=== PATIENT | female | born 1960 | race Caucasian/White ===

== ENCOUNTER 2023-03-02 12:30 | Outpatient (CLI) | payer MEDICAID | END 2023-03-02 12:31 | disposition critical access hospital (66) | LOC: EMS 12:30 | DX: T63.441A Toxic effect of venom of bees, accidental (unintentional), initial encounter (principal) | CPT/HCPCS: A0425; A0429 ==

== ENCOUNTER 2023-03-02 12:53 | Emergency (ER) | payer MEDICAID, OTHER ==
[2023-03-02] MEDS ORDERED: cephALEXin 250 MG CAPSULE PO STA (13:03)
[2023-03-02] MEDS ORDERED: CHERRY SYRUP 10 ML UDC PO ONE (13:03)
[2023-03-02] MEDS ORDERED: DEXAMETHASONE 10 MG/ML VIAL PO STA (13:03)
[2023-03-02] MEDS ORDERED: SULFAMETH/TRIMETH DS 800/160 MG TABLET PO STA (13:03)
[2023-03-02] MEDS ORDERED: DOXEPIN 10 MG CAPSULE PO STA (13:03)
[2023-03-02] MEDS ORDERED: HYDROcod/ACETAM 5/325 MG TABLET PO STA (13:04)
--- NOTE | 2023-03-02 13:06 | ED Physician Documentation ---
History of Present Illness - Stated complaint Stated Complaint: LLE INFLAMED STUNG BY BEES - Chief complaint Chief Complaint: General - History obtained from History obtained from: Patient - Additonal information Additional information: 62-year-old woman who is homeless. She is living out [place]. Cannot go to the group home because she has a dog. 3 days ago she was stung multiple times by bees or wasps. 1 in the abdominal wall but mostly in the left lower extremity. Her left lower extremity is swollen and painful and because of that she cannot walk or bear weight. No fevers. She is otherwise healthy. PD PAST MEDICAL HISTORY - Present Medications Home Medications: Ambulatory Orders Medication Instructions Recorded Confirmed Doxepin [SINEquan] 10 mg PO TID PRN #14 cap 03/02/23 HYDROcod/ACETAM 5/325 [[place] 5/325] 1 - 2 tab PO Q6H PRN #15 tablet 03/02/23 Sulfamethox/Trimeth 800/160 1 each PO BID #14 tablet 03/02/23 [Bactrim Ds 800/160] cephALEXin [Keflex] 500 mg PO Q6H #28 cap 03/02/23 predniSONE [Deltasone] 20 mg PO [id number] #21 tab 03/02/23 - Allergies Allergies/Adverse Reactions: Allergies Allergy/AdvReac Type Severity Reaction Status Date / Time amoxicillin Allergy Unknown Verified 03/02/23 13:24 ampicillin Allergy Unknown Verified 03/02/23 13:24 Penicillins Allergy Unknown Verified 03/02/23 13:24 PD ED PE NORMAL - Vitals Vital signs reviewed: Yes - General General: Alert and oriented X 3, No acute distress - HEENT HEENT: Pharynx benign - Cardiac Cardiac: RRR, No murmur - Respiratory Respiratory: No respiratory distress, Clear bilaterally - Derm Derm: Normal color, Warm and dry - Extremities Extremities: Other (There is one picked at bee sting on the lower abdominal wall with signs of mild superinfection. The left lower extremity is swollen warm itchy with hives and a few very small bullae. There are some thick areas above the knee that also look superinfected but nothing to culture.) - Neuro Neuro: Alert and oriented X 3, Normal speech Results - Vitals Vitals: Vital Signs - 24 hr 03/02/23 13:01 Temperature 36.7 C Heart Rate 100 Respiratory 19 Rate Blood Pressure 106/85 H O2 Saturation 99 Oxygen O2 Source Room air PD Medical Decision Making - ED course ED course: 62-year-old homeless woman has superinfected bee stings and cannot walk or bear weight related to same. She is administered Bactrim, Keflex, hydrocodone, doxepin, and steroids. Social work consult placed given the above. Seen by social work given her homelessness and inability to bear weight. Patient did feel able to walk with crutches and social work arranged for her to have a few nights in a hotel for respite. Departure - Departure Disposition: 01 Home, Self Care Clinical Impression: Left leg cellulitis Bee sting Qualifiers: Encounter type: initial encounter Injury intent: accidental or unintentional Qualified Code(s): T63.441A - Toxic effect of venom of bees, accidental (unintentional), initial encounter Condition: Good Record reviewed to determine appropriate education?: Yes Instructions: ED Infec Skin Cellulitis Prescriptions: Sulfamethox/Trimeth 800/160 [Bactrim Ds 800/160] 1 each PO BID #14 tablet predniSONE [Deltasone] 20 mg PO [id number] #21 tab cephALEXin [Keflex] 500 mg PO Q6H #28 cap HYDROcod/ACETAM 5/325 [[place] 5/325] 1 - 2 tab PO Q6H PRN #15 tablet PRN Reason: Pain Doxepin [SINEquan] 10 mg PO TID PRN #14 cap PRN Reason: Itching Comments: I sent your prescriptions electronically to [facility] in [place]. heating and ventilating worker arranged for a few nights for you at the [facility] which is right next to [facility]. Call your doctor to arrange a follow-up appointment, make the next available appointment. In the interim, return anytime if worse or if new symptoms develop. I am prescribing a short course of narcotic pain medication for you. These are potentially dangerous and addictive medications that should be used carefully. These medications may constipate you. Take an [id number] stool softener (docusate) twice daily with plenty of water while taking these medications. If you go 24 hours without a bowel movement, take [id number] miralax, per package instructions. Do not drink or drive while taking these medications. If you received narcotic or sedating medications while in the emergency department, do not drive for 24 hours. Store this medication in a safe, secure place and out of reach of children. It is a violation of federal law to give or sell this medication to another person or to use in a manner other than prescribed. The ED will not refill narcotic prescriptions, including prescriptions lost or stolen. To dispose of unwanted medications: 1. [facility] provides a [facility] box for medication in pill form only (no liquids) 8:00 am to 4:30 p.m. Thursday-Thursday in the lobby of the [facility], [address] [place] [address]. Empty pills into ziplock bag before disposal. Call [phone] for information. 2.[employer] is a free service available to all [facility] residents. Go to [email or web address] Note that many narcotic pain relievers also contain Tylenol/acetaminophen. P lease ensure that your total dose of acetaminophen from all sources does not exceed 3 g (3000 mg) per day.
[2023-03-02 15:12] VITALS: BP 110/88; O2SAT 100
== END 2023-03-02 15:06 | disposition home or self-care (01) ==
LOC: ED 12:53 → MERGE 12:53 → ED 15:06
DX: L03.116 Cellulitis of left lower limb (principal); T63.441A Toxic effect of venom of bees, accidental (unintentional), initial encounter; Z59.00 Homelessness unspecified
CPT/HCPCS: 99283; A9270

== ENCOUNTER 2023-03-18 09:36 | Outpatient (CLI) | payer MEDICAID | END 2023-03-18 09:37 | disposition left against medical advice (07) | LOC: EMS 09:36 | DX: M79.89 Other specified soft tissue disorders (principal) ==

== ENCOUNTER 2023-05-12 19:18 | Outpatient (CLI) | payer MEDICAID | END 2023-05-12 19:19 | disposition short-term general hospital (02) | LOC: EMS 19:18 | DX: R40.4 Transient alteration of awareness (principal); R09.89 Other specified symptoms and signs involving the circulatory and respiratory systems; T50.901A Poisoning by unspecified drugs, medicaments and biological substances, accidental (unintentional), initial encounter; Y92.022 Bathroom in mobile home as the place of occurrence of the external cause | CPT/HCPCS: A0425; A0427; A0999 ==

== ENCOUNTER 2023-06-29 23:03 | Outpatient (CLI) | payer SELFPAY | END 2023-06-29 23:59 | disposition critical access hospital (66) | LOC: EMS 23:03 | DX: T40.411A Poisoning by fentanyl or fentanyl analogs, accidental (unintentional), initial encounter (principal) | CPT/HCPCS: A0425; A0427 ==

== ENCOUNTER 2023-06-29 23:25 | Emergency (ER) | payer SELFPAY ==
--- NOTE | 2023-06-29 23:52 | ED Physician Documentation ---
History of Present Illness - Stated complaint Stated Complaint: OD - Chief complaint Chief Complaint: MHE - History obtained from History obtained from: EMS - Additonal information Additional information: 62-year-old woman with history of fentanyl abuse presents status post overdose tonight. Patient was found with fentanyl pills by EMS after family member called 911. On arrival she was breathing at 4 breaths/min and 67% on room air. She received 4 mg intranasal Narcan without improvement and then 1 mg IV Narcan with improvement in mental status and is now alert and oriented x 3. Also received 4 mg IV Zofran en route. She did have some desaturations en route and was 84% on 6 L nasal cannula at 1 point. Further history limited by patient intoxication. Review of Systems Unable to obtain: Intoxicated PD PAST MEDICAL HISTORY - Present Medications Home Medications: Ambulatory Orders Medication Instructions Recorded Confirmed Doxepin [SINEquan] 10 mg PO TID PRN #14 cap 03/02/23 HYDROcod/ACETAM 5/325 [[place] 5/325] 1 - 2 tab PO Q6H PRN #15 tablet 03/02/23 Sulfamethox/Trimeth 800/160 1 each PO BID #14 tablet 03/02/23 [Bactrim Ds 800/160] cephALEXin [Keflex] 500 mg PO Q6H #28 cap 03/02/23 predniSONE [Deltasone] 20 mg PO [id number] #21 tab 03/02/23 - Allergies Allergies/Adverse Reactions: Allergies Allergy/AdvReac Type Severity Reaction Status Date / Time amoxicillin Allergy Unknown Verified 06/29/23 23:51 ampicillin Allergy Unknown Verified 06/29/23 23:51 Penicillins Allergy Unknown Verified 06/29/23 23:51 PD ED PE NORMAL - Vitals Vital signs reviewed: Yes - General General: Alert and oriented X 3, No acute distress, Other (disheveled appearing) - HEENT HEENT: Atraumatic, PERRL, EOMI, Moist mucous membranes, Pharynx benign - Neck Neck: Supple, no meningeal sign - Cardiac Cardiac: RRR - Respiratory Respiratory: No respiratory distress, Clear bilaterally - Abdomen Abdomen: Non tender, Non distended - Derm Derm: Normal color, Warm and dry - Neuro Neuro: Alert and oriented X 3 Results - Vitals Vitals: Vital Signs - 24 hr 06/29/23 06/30/23 06/30/23 23:30 00:00 00:30 Temperature 36.4 C L Heart Rate 105 H 101 H 104 H Respiratory 16 17 11 L Rate Blood Pressure 133/92 H 133/92 H 121/92 H O2 Saturation 94 89 L If not protocol : Oxygen Flow, liters/minute 06/30/23 06/30/23 06/30/23 00:46 01:30 02:00 Temperature 36.4 C L 36.8 C Heart Rate 101 H 100 108 H Respiratory 17 16 18 Rate Blood Pressure 121/92 H 126/81 H 116/78 O2 Saturation 95 93 93 If not protocol 4 4 4 : Oxygen Flow, liters/minute 06/30/23 06/30/23 06/30/23 02:30 03:00 05:01 Temperature Heart Rate 96 106 H 106 H Respiratory 11 L 13 14 Rate Blood Pressure 120/82 H 122/85 H 108/65 O2 Saturation 96 95 92 If not protocol 3 4 : Oxygen Flow, liters/minute 06/30/23 06/30/23 05:30 06:32 Temperature 36.8 C 36.3 C L Heart Rate 115 H 105 H Respiratory 19 12 Rate Blood Pressure 128/92 H 106/80 O2 Saturation 94 94 If not protocol 4 4 : Oxygen Flow, liters/minute Oxygen O2 Source Nasal cannula Oxygen Flow Rate 3 - EKG (time done) 2338 EKG releavant findings:: EKG personally interpreted by author of this note. Relevant findings are: Rate: Rate (enter#) (100) Rhythm: Sinus tachycardia [place]: Normal Intervals: Normal UT QRS: Normal Ischemia: Normal ST segments - Labs Labs: Laboratory Tests 06/29/23 06/29/23 06/29/23 00:30 00:40 00:40 WBC 3.1 L RBC 4.40 Hgb 14.8 Hct 45.3 MCV 103.0 H MCH 33.6 H MCHC 32.7 RDW 12.4 Plt Count 148 MPV 10.2 Neut # (Auto) 2.1 Lymph # (Auto) 0.8 L Jay # (Auto) 0.2 Eos # (Auto) 0.0 Baso # (Auto) 0.0 Absolute Nucleated RBC 0.00 Nucleated RBC % 0.0 Sodium 142 Potassium 3.9 Chloride 105 Carbon Dioxide 31 Anion Gap 6.0 BUN 12 Creatinine 0.8 Estimated GFR (MDRD) 72 L Glucose 100 Calcium 9.4 Magnesium 1.6 L Total Bilirubin 0.5 AST 71 H ALT 48 Alkaline Phosphatase 68 Total Creatine Kinase 109 B-Natriuretic Peptide Total Protein 6.0 L Albumin 3.5 Globulin 2.5 Albumin/Globulin Ratio 1.4 Lipase 28 TSH 6.18 H Urine Color Urine Clarity Urine pH Ur Specific [place] Urine Protein Urine Glucose (UA) Urine Ketones Urine Occult Blood Urine Nitrite Urine Bilirubin Urine Urobilinogen Ur Leukocyte Esterase Ur Microscopic Review Urine Culture Comments Nasal Adenovirus (PCR) NOT DETECTED Nasal B. parapertussis DNA (PCR) NOT DETECTED Nasal Coronavir 229E PCR NOT DETECTED Nasal Coronavir HKU1 PCR NOT DETECTED Nasal Coronavir NL63 PCR NOT DETECTED Nasal Coronavir OC43 PCR NOT DETECTED Nasal Enterovir/Rhinovir PCR NOT DETECTED Nasal Influenza B PCR NOT DETECTED Nasal Influenza A PCR NOT DETECTED Nasal Parainfluen 1 PCR NOT DETECTED Nasal Parainfluen 2 PCR NOT DETECTED Nasal Parainfluen 3 PCR NOT DETECTED Nasal Parainfluen 4 PCR NOT DETECTED Nasal RSV (PCR) NOT DETECTED Nasal B.pertussis DNA PCR NOT DETECTED Nasal C.pneumoniae (PCR) NOT DETECTED Scott Human Metapneumo PCR NOT DETECTED Nasal M.pneumoniae (PCR) NOT DETECTED Nasal SARS-CoV-2 (PCR) NOT DETECTED Salicylates < 1.5 Urine Opiates Screen Ur Buprenorphine Scrn Ur Oxycodone Screen Urine Methadone Screen Acetaminophen 1.1 Ur Barbiturates Screen Ur Tricyclics Screen Ur Phencyclidine Scrn Ur Amphetamine Screen U Methamphetamines Scrn U Benzodiazepines Scrn Urine Cocaine Screen U Cannabinoids Screen Ur Drug Screen Comment Ethyl Alcohol < 10.0 06/30/23 06/30/23 00:30 00:40 WBC RBC Hgb Hct MCV MCH MCHC RDW Plt Count MPV Neut # (Auto) Lymph # (Auto) Jay # (Auto) Eos # (Auto) Baso # (Auto) Absolute Nucleated RBC Nucleated RBC % Sodium Potassium Chloride Carbon Dioxide Anion Gap BUN Creatinine Estimated GFR (MDRD) Glucose Calcium Magnesium Total Bilirubin AST ALT Alkaline Phosphatase Total Creatine Kinase B-Natriuretic Peptide 117 H Total Protein Albumin Globulin Albumin/Globulin Ratio Lipase TSH Urine Color YELLOW Urine Clarity CLEAR Urine pH 6.0 Ur Specific [place] 1.020 Urine Protein TRACE Urine Glucose (UA) NEGATIVE Urine Ketones NEGATIVE Urine Occult Blood NEGATIVE Urine Nitrite NEGATIVE Urine Bilirubin NEGATIVE Urine Urobilinogen 2 H Ur Leukocyte Esterase NEGATIVE Ur Microscopic Review NOT INDICATED Urine Culture Comments NOT INDICATED Nasal Adenovirus (PCR) Nasal B. parapertussis DNA (PCR) Nasal Coronavir 229E PCR Nasal Coronavir HKU1 PCR Nasal Coronavir NL63 PCR Nasal Coronavir OC43 PCR Nasal Enterovir/Rhinovir PCR Nasal Influenza B PCR Nasal Influenza A PCR Nasal Parainfluen 1 PCR Nasal Parainfluen 2 PCR Nasal Parainfluen 3 PCR Nasal Parainfluen 4 PCR Nasal RSV (PCR) Nasal B.pertussis DNA PCR Nasal C.pneumoniae (PCR) Scott Human Metapneumo PCR Nasal M.pneumoniae (PCR) Nasal SARS-CoV-2 (PCR) Salicylates Urine Opiates Screen NEGATIVE Ur Buprenorphine Scrn NEGATIVE Ur Oxycodone Screen NEGATIVE Urine Methadone Screen NEGATIVE Acetaminophen Ur Barbiturates Screen NEGATIVE Ur Tricyclics Screen NEGATIVE Ur Phencyclidine Scrn NEGATIVE Ur Amphetamine Screen POSITIVE H U Methamphetamines Scrn POSITIVE H U Benzodiazepines Scrn NEGATIVE Urine Cocaine Screen NEGATIVE U Cannabinoids Screen NEGATIVE Ur Drug Screen Comment CUTOFF CONC BELOW: Ethyl Alcohol PD Medical Decision Making - ED course ED course: 62-year-old woman presents with fentanyl overdose, treated with intranasal and IV Narcan. Plan to monitor in the emergency department and obtain lab work including CBC, abdominal panel and tox labs. Will reevaluate. Patient went to sleep in her stretcher and breathing went down to 5BPM on monitor with O2 sat 75% RA. 1mg additional IV narcan ordered. Labwork noncontributory. cxr shows prominent interstitial markings, possibly mild pulmonary edema. bnp ordered but in an unimpressive range. O2 sat maintaining in low to mid90s consistently on RA overnight. suspect aspiration pneumonitis. RVP negative. no beds available for admission so patient is boarding in the ED. patient in NAD, sleeping in stretcher, maintaining airway we ll after narcan administration. Plan to endorse to incoming daytime ED MD at 7am shift change. Departure - Departure Clinical Impression: Fentanyl adverse reaction, Overdose Condition: Stable Forms: PCP List
[2023-06-29] MEDS ORDERED: NALOXONE 0.4 MG/ML VIAL IVP STA (23:55)
[2023-06-30 00:47] LABS: BASOPHILS % (AUTO) 0.3 %; HCT - HEMATOCRIT 45.3 % (37.0-47.0); HGB - HEMOGLOBIN 14.8 g/dL (12.0-16.0); LYMPHOCYTES # (AUTO) 0.8 10^3/uL (1.5-3.5); MEAN CORPUSCULAR HEMOGLOBIN 33.6 pg (27.0-31.0); MEAN CORPUSCULAR HGB CONC 32.7 g/dL (32.0-36.0); MEAN PLATELET VOLUME 10.2 fL (7.9-10.8); MONOCYTES # (AUTO) 0.2 10^3/uL (0.0-1.0); MONOCYTES % (AUTO) 6.1 %; NEUTROPHILS # (AUTO) 2.1 10^3/uL (1.5-6.6); NEUTROPHILS % (AUTO) 67.3 %; PLT - PLATELET COUNT 148 10^3/uL (130-450); RED CELL DISTRIBUTION WIDTH 12.4 % (12.0-15.0); WHITE BLOOD COUNT 3.1 x10^3/uL (4.8-10.8)
[2023-06-30 00:50] LABS: BILIRUBIN,URINE NEGATIVE (NEGATIVE); GLUCOSE, URINE (UA) NEGATIVE (NEGATIVE); KETONES,URINE (UA) NEGATIVE (NEGATIVE); LEUKOCYTE ESTERASE, URINE NEGATIVE (NEGATIVE); NITRITE,URINE NEGATIVE (NEGATIVE); OCCULT BLOOD,URINE NEGATIVE (NEGATIVE); PROTEIN,URINE TRACE mg/dL (NEGATIVE); UROBILINOGEN,URINE 2 E.U./dL (NORMAL)
[2023-06-30 01:04] LABS: CLARITY,URINE CLEAR (CLEAR)
[2023-06-30 01:06] LABS: COCAINE SCREEN URINE NEGATIVE (NEGATIVE); METHAMPHETAMINES SCREEN, URINE POSITIVE (NEGATIVE); OPIATE SCREEN, URINE NEGATIVE (NEGATIVE); THC CANNABINOID SCREEN, URINE NEGATIVE (NEGATIVE)
[2023-06-30 01:07] LABS: AMPHETAMINE SCREEN,URINE POSITIVE (NEGATIVE); BARBITURATE SCREEN,UR NEGATIVE (NEGATIVE); BENZODIAZEPINES SCREEN, URINE NEGATIVE (NEGATIVE); BUPRENORPHINE SCREEN, URINE NEGATIVE (NEGATIVE); METHADONE SCREEN, URINE NEGATIVE (NEGATIVE); OXYCODONE SCREEN, URINE NEGATIVE (NEGATIVE); TRICYCLIC ANTIDEPRESSANT,URINE NEGATIVE (NEGATIVE)
[2023-06-30 01:09] LABS: ACETAMINOPHEN 1.1 ug/mL; ALBUMIN 3.5 g/dL (3.2-5.5); ALBUMIN/GLOBULIN RATIO 1.4 (1.0-2.2); ALKALINE PHOSPHATASE 68 IU/L (42-121); ALT ALANINE AMINOTRANSFERASE 48 IU/L (10-60); AST ASPARTATE AMINOTRANSFERASE 71 IU/L (10-42); BILIRUBIN,TOTAL 0.5 mg/dL (0.2-1.0); BUN - BLOOD UREA NITROGEN 12 mg/dL (6-20); CALCIUM 9.4 mg/dL (8.5-10.3); CARBON DIOXIDE - CO2 31 mmol/L (21-32); CHLORIDE 105 mmol/L (101-111); CK- CREATINE KINASE 109 IU/L (30-223); CREATININE 0.8 mg/dL (0.6-1.3); ETOH - ETHANOL < 10.0 mg/dL; GFR - MDRD 72 (>89); GLUCOSE 100 mg/dL (74-104); LIPASE 28 U/L (11-82); MAGNESIUM 1.6 mg/dL (1.7-2.3); POTASSIUM 3.9 mmol/L (3.5-4.5); SALICYLATE < 1.5 mg/dL; SODIUM 142 mmol/L (135-145)
[2023-06-30 01:22] LABS: THYROID STIMULATING HORMONE 6.18 uIU/mL (0.34-5.60)
--- NOTE | 2023-06-30 01:28 | XRAY Report ---
PROCEDURE: Chest 1V INDICATIONS: hypoxia TECHNIQUE: One view of the chest was acquired. COMPARISON: None. FINDINGS: Surgical changes and devices: None. Lungs and pleura: No pleural effusions or pneumothorax. Prominent interstitial markings. No focal ai rspace consolidation. Mediastinum: Mediastinal contours appear normal. Heart size is normal. Bones and chest wall: No suspicious bony lesions. Overlying soft tissues appear unremarkable. IMPRESSION: Prominent interstitial markings likely reflect mild pulmonary edema. No focal airspace consolidation. Reviewed by: Kenzie James MD on 06/30/2023 1:27 AM PST Approved by: Kenzie James MD on 06/30/2023 1:27 AM [facility] Station ID: [id number]
[2023-06-30 01:41] LABS: B. PARAPERTUSSIS- RESP PCR PAN NOT DETECTED; B. PERTUSSIS- RESP PCR PANEL NOT DETECTED; C. PNEUMONIAE- RESP PCR PANEL NOT DETECTED; CORONAVIRUS 229E-RESP PCR NOT DETECTED; CORONAVIRUS HKU1-RESP PCR NOT DETECTED; CORONAVIRUS NL63-RESP PCR NOT DETECTED; CORONAVIRUS OC43-RESP PCR NOT DETECTED; HUMAN METAPNEUMOVIRUS NOT DETECTED; INFLUENZA A- RESP PCR PANEL NOT DETECTED; INFLUENZA B - RESP PCR PANEL NOT DETECTED; M. PNEUMONIAE- RESP PCR PANEL NOT DETECTED; PARAINFLUENZA VIRUS 1 NOT DETECTED; PARAINFLUENZA VIRUS 2 NOT DETECTED; PARAINFLUENZA VIRUS 3 NOT DETECTED; PARAINFLUENZA VIRUS 4 NOT DETECTED; RHINOVIRUS/ENTEROVIRUS NOT DETECTED; RSV- RESP PCR PANEL NOT DETECTED; SARS-CoV-2 -RESP PCR PANEL NOT DETECTED
[2023-06-30] MEDS ORDERED: NALOXONE HCL NASAL SPRAY KIT NAS STA (11:31)
--- NOTE | 2023-06-30 11:33 | ED Physician Documentation ---
ED Addendum - Addendum Addendum: 06/30/23 11:30 Patient received a signout from off going physician, please see their d ocumentation for further detail. In short patient 62-year-old female who presented the emergency department last night via EMS after opiate and polysubstance overdose. Received Narcan here and in the field prior to arrival. Was monitored throughout several hours of my shift. No episodes of apnea or persistent hypoxia. Was evaluated independently by social work. See their documentation for further detail. Initially patient was reporting that she felt well enough and requested discharge however she continued to have episodes of precipitous desaturations. She was placed on supplemental oxygen. Additionally she remained persistently somnolent for several hours throughout my shift. Given her persistent unresolving symptoms I did order for CTA of her chest which was negative. She was reevaluated multiple times. She did have an episode of emesis and was given a dose of Reglan but had no further episodes of emesis. Throughout the entirety of my shift she remained somewhat somnolent but was easily arousable and able to have a full complete and cogent conversation with me. She did report a history of 40 years smoking. I do think it is likely that she has underdiagnosed COPD and likely has a baseline oxygen saturation in the low 90s. I have asked for respiratory therapy to come and provide her with a breathing treatment. At this time I will be signing out to the oncoming physician, please see their documentation for further detail. Departure - Departure Clinical Impression: Hypoxia Fentanyl adverse reaction Qualifiers: Encounter type: initial encounter Qualified Code(s): T40.415A - Adverse effect of fentanyl or fentanyl analogs, initial encounter Overdose Qualifiers: Encounter type: initial encounter Injury intent: accidental or unintentional Qualified Code(s): T50.901A - Poisoning by unspecified drugs, medicaments and biological substances, accidental (unintentional), initial encounter Condition: Stable Comments: Thank you for allowing us to care for you today at [facility]. Today in the emergency department you were treated for an opiate and polysubsta nce overdose. I have asked my nurses to provide you with a Narcan kit to have available at home. I like to strongly encourage you to abstain from the use of dangerous and illicit substances such as fentanyl and methamphetamine in the future. If you are interested in drug/alcohol treatment and rehabilitation you can follow-up with: [facility] Address: [address] [place] [id number] If it anytime you have any new or worsening symptoms please return to the emergency department. Forms: PCP List
[2023-06-30] MEDS ORDERED: METOCLOPRAMIDE 10 MG/2 ML VIAL IVP STA (12:17)
[2023-06-30] MEDS ORDERED: iohexoL-300 100 ML VIAL IVP ONE (14:09)
--- NOTE | 2023-06-30 15:51 | CT Report ---
PROCEDURE: ANGIO CHEST W/WO INDICATIONS: Hypoxia, evaluate pe vs aspiration CONTRAST: 80mL Omni 300 TECHNIQUE: After the administration of intravenous contrast, 2 mm axial images were acquired from the pulmonary apices to the posterior costophrenic angles during the arterial phase. In addition, 1 mm lung kernel and 5 mm soft tissue kernel reconstructions were performed. 3-dimensional coronal oblique maximum int ensity projection (MIP) reformats, 8 mm axial MIP, and 5 mm coronal and sagittal MPR reformats were t hen performed through the thorax. For radiation dose reduction, the following was used: automated exp osure control, adjustment of mA and/or kV according to patient size. COMPARISON: None. FINDINGS: Image quality: Excellent. Large vessels: No filling defects within the opacified pulmonary arteries, accounting for motion and contrast timing. No evidence of acute aortic syndrome or aortic aneurysm. Lungs and pleura: No consolidation. No pleural effusions. No pneumothorax. No suspicious pulmonary n odules which require follow up. Mediastinum: Heart size is normal. No pericardial effusion. Moderate to severe coronary artery calcif ications. No large vessel abnormality. No mediastinal adenopathy by size criteria. Chest wall and lower neck: Thyroid is unremarkable. No axillary or supraclavicular adenopathy by size . Bones: No aggressive osseous abnormality. Mild old L1 compression fracture. Upper Abdomen: Question upper abdominal periaortic adenopathy. This is not definite. Alternatively, t he appearance can be caused by a paucity of abdominal fat and lack of oral contrast.. IMPRESSION: 1. No acute pulmonary embolic. 2. No acute pulmonary process. 3. Question upper abdominal periaortic adenopathy. This is not definite. Comment: Recommend nonemergent CT abdomen and pelvis with IV and oral contrast to check for the possi bility of retroperitoneal adenopathy. Reviewed by: Boni Tavera MD on 06/30/2023 3:49 PM PST Approved by: Boni Tavera MD on 06/30/2023 3:49 PM PST Station ID: [id number]
[2023-06-30] MEDS ORDERED: IPRATROPIUM/ALBUTEROL 3 ML NEB INH STA (17:43)
[2023-06-30 19:19] VITALS: BP 112/75; O2SAT 96
--- NOTE | 2023-06-30 19:35 | ED Physician Documentation ---
ED Addendum - Addendum Addendum: 06/30/23 19:33 The patient was signed out to me at change of shift after being seen in the emergency department initially for polysubstance overdose and then being found to be hypoxic whenever she fell asleep. The patient had extensive workup here in the emergency department including CT angiogram of the chest, all of which was unremarkable. The patient was sleeping comfortably in bed and when awake, had sats in the mid 90s and no complaints respiratory lay, whatsoever. Her oxy gen saturation on 2 L per nasal cannula was in the upper 90s while asleep and I did reevaluate her off oxygen. The patient remained asleep, but maintaining sats in the low to mid 90s with good waveform for 10 minutes after oxygen was turned off. At this point, I felt she was stable for discharge. The patient was kept on the O2 sat monitor after the initial period and was not found to desat back into the 80s. I discussed with her the importance of getting help with her substance abuse, and also, following up with primary care. She has been given primary care provider list. We have discussed the usual indications for return. Final impression: See original note Disposition: Discharged home in stable and improved condition.
== END 2023-06-30 20:20 | disposition home or self-care (01) ==
LOC: EDUNIT# → ED 23:25
DX: T40.411A Poisoning by fentanyl or fentanyl analogs, accidental (unintentional), initial encounter (principal); R09.02 Hypoxemia; F17.200 Nicotine dependence, unspecified, uncomplicated
CPT/HCPCS: 36415; 71045; 71275; 80053; 80306; 80307; 80320; 80329; 81003; 82550; 83690; 83735; 83880; 84443; 85025; 87633; 93005; 94640; 96374; 96375; 99283; 99284; G2215; J2765; Q9967; 81001; 87086

== ENCOUNTER 2023-08-08 21:04 | Emergency (ER) | payer SELFPAY ==
--- NOTE | 2023-08-08 21:47 | ED Physician Documentation ---
PD HPI SKIN - Stated complaint Stated Complaint: R LEG SWELLING - Chief complaint Chief Complaint: Wound - History obtained from History obtained from: Patient - Additional information Additional information: 62-year-old female presents for 3 days of right lower extremity pain, redness, swelling. States it feels like when she has had cellulitis in the past. Painful to touch. Denies known skin tears or precipitating factors. Review of Systems Constitutional: denies: Fever, Chills Cardiac: denies: Chest pain / pressure, Palpitations, Calf pain Respiratory: denies: Dyspnea, Cough, Wheezing GI: denies: Abdominal Pain, Nausea, Vomiting : denies: Dysuria, Frequency, Hesitancy Skin: reports: Rash. denies: Lesions, Abrasion (s), Laceration (s) Musculoskeletal: reports: Extremity pain, Extremity swelling. 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 Psych: Other - Past Surgical History Past Surgical History: Yes /SOFTWARE ENGINEER SALES: Hysterectomy, Oophrectomy - Present Medications Home Medications: Ambulatory Orders Medication Instructions Recorded Confirmed Doxepin [SINEquan] 10 mg PO TID PRN #14 cap 03/02/23 HYDROcod/ACETAM 5/325 [[place] 5/325] 1 - 2 tab PO Q6H PRN #15 tablet 03/02/23 Sulfamethox/Trimeth 800/160 1 each PO BID #14 tablet 03/02/23 [Bactrim Ds 800/160] cephALEXin [Keflex] 500 mg PO Q6H #28 cap 03/02/23 predniSONE [Deltasone] 20 mg PO [id number] #21 tab 03/02/23 Doxycycline Hyclate 100 mg PO BID #14 tab 08/08/23 - Allergies Allergies/Adverse Reactions: Allergies Allergy/AdvReac Type Severity Reaction Status Date / Time amoxicillin Allergy Unknown Verified 08/08/23 21:42 ampicillin Allergy Unknown Verified 08/08/23 21:42 Penicillins Allergy Unknown Verified 08/08/23 21:42 - Social History Does the pt smoke?: No Smoking Status: Never smoker Does the pt drink ETOH?: No Does the pt have substance abuse?: Yes - Immunizations Immunizations are current?: No Immunizations: TDAP >10years/unknown - POLST Patient has POLST: No PD ED PE NORMAL - Vitals Vital signs reviewed: Yes - General General: Alert and oriented X 3, No acute distress - Cardiac Cardiac: RRR, Strong equal pulses - Respiratory Respiratory: No respiratory distress, Clear bilaterally - Abdomen Abdomen: Soft, Non tender, Non distended - Derm Derm: Warm and dry, Other (blotchy erythema RLE to knee) - Extremities Extremities: No deformity, Normal ROM s pain, Other (RLE larger than LLE from knee-down) - Neuro Neuro: Alert and oriented X 3, tribal delegate 2-12 intact, No motor deficit, Normal speech Results - Vitals Vitals: Vital Signs - 24 hr 08/08/23 21:37 Temperature 37 C Heart Rate 98 Respiratory 18 Rate Blood Pressure 150/80 H O2 Saturation 96 Oxygen O2 Source Room air - Labs Labs: Laboratory Tests 08/08/23 08/08/23 08/08/23 22:09 22:09 22:09 WBC 4.8 RBC 4.34 Hgb 14.2 Hct 44.5 MCV 102.5 H MCH 32.7 H MCHC 31.9 L RDW 13.2 Plt Count 138 MPV 11.3 H Neut # (Auto) 2.7 Lymph # (Auto) 1.4 L [place] # (Auto) 0.6 Eos # (Auto) 0.1 Baso # (Auto) 0.0 Absolute Nucleated RBC 0.00 Nucleated RBC % 0.0 Sodium 139 Potassium 2.9 L Chloride 100 L Carbon Dioxide 29 Anion Gap 10.0 BUN 18 Creatinine 0.7 Estimated GFR (MDRD) 85 L Glucose 113 H Lactic Acid 2.5 H Calcium 9.4 Total Bilirubin 0.7 AST 36 ALT 27 Alkaline Phosphatase 92 Total Protein 6.5 Albumin 3.5 Globulin 3.0 Albumin/Globulin Ratio 1.2 Procalcitonin Immunoas 0.92 H PD Medical Decision Making - ED course Complexity details: reviewed results, re-evaluated patient, considered differential, d/w patient ED course: 3 days of lower extremity redness and swelling. Patient states it is similar to previous episodes of cellulitis. Unfortunately we do not currently have any ultrasound occupational therapist home based at our facility. Laboratory work is reviewed, mild elevation in lactic acid, procalcitonin 0.9, however no leukocytosis. Indicative of bacterial cellulitis. Patient given initial dose of antibiotics in the ED, however appears stable for outpatient treatment. Antibiotics sent to pharmacy of choice. Patient advised to return tomorrow for US to r/o DVT. Departure - Departure Disposition: 01 Home, Self Care Clinical Impression: Leg swelling, Cellulitis Condition: Stable Instructions: Cellulitis Dc Prescriptions: Doxycycline Hyclate 100 mg PO BID #14 tab Comments: Your labs indicate cellulitis of your leg. We were unable to ultrasound your leg today, so I suggest returning to the ED for ultrasound tomorrow. Antibiotics have been sent to the [facility] in [place]. Elevate your legs to help with the swelling Forms: PCP List
[2023-08-08 22:18] LABS: BASOPHILS % (AUTO) 0.2 %; EOSINOPHILS # (AUTO) 0.1 10^3/uL (0.0-0.7); HCT - HEMATOCRIT 44.5 % (37.0-47.0); HGB - HEMOGLOBIN 14.2 g/dL (12.0-16.0); LYMPHOCYTES # (AUTO) 1.4 10^3/uL (1.5-3.5); MEAN CORPUSCULAR HEMOGLOBIN 32.7 pg (27.0-31.0); MEAN CORPUSCULAR HGB CONC 31.9 g/dL (32.0-36.0); MEAN CORPUSCULAR VOLUME 102.5 fL (81.0-99.0); MEAN PLATELET VOLUME 11.3 fL (7.9-10.8); MONOCYTES # (AUTO) 0.6 10^3/uL (0.0-1.0); MONOCYTES % (AUTO) 11.5 %; NEUTROPHILS # (AUTO) 2.7 10^3/uL (1.5-6.6); NEUTROPHILS % (AUTO) 55.8 %; PLT - PLATELET COUNT 138 10^3/uL (130-450); RED BLOOD COUNT 4.34 10^6/uL (4.20-5.40); RED CELL DISTRIBUTION WIDTH 13.2 % (12.0-15.0); WHITE BLOOD COUNT 4.8 x10^3/uL (4.8-10.8)
[2023-08-08 22:39] LABS: PROCALCITONIN 0.92 ng/mL (<0.5)
[2023-08-08 22:44] LABS: ALBUMIN 3.5 g/dL (3.2-5.5); ALBUMIN/GLOBULIN RATIO 1.2 (1.0-2.2); BILIRUBIN,TOTAL 0.7 mg/dL (0.2-1.0); CALCIUM 9.4 mg/dL (8.5-10.3); CREATININE 0.7 mg/dL (0.6-1.3); POTASSIUM 2.9 mmol/L (3.5-4.5); TOTAL PROTEIN 6.5 g/dL (6.4-8.9)
[2023-08-08] MEDS: POTASSIUM CHLORIDE 20 MEQ TABLET PO STA (23:32)
[2023-08-08] MEDS: SODIUM CHLORIDE 0.9% 1,000 ML IV STA ×2 (23:32)
[2023-08-08] MEDS ORDERED: cefTRIAXone 2 GM VIAL ONE (23:40)
[2023-08-08] MEDS: cefTRIAXone 2 GM in SODIUM CHLORIDE 0.9% MINIBAG 100 ML IV STA ×2 (23:46→23:52)
[2023-08-09] MEDS ORDERED: VANCOMYCIN INJ 1 GM, VANCOMYCIN INJ 500 MG in SODIUM CHLORIDE 0.9% 500 ML IV ONE (01:00)
[2023-08-09] MEDS: VANCOMYCIN INJ 1,500 GM in SODIUM CHLORIDE 0.9% 500 ML IV STA ×2 (01:03→01:49)
[2023-08-09] MEDS ORDERED: SODIUM CHLORIDE 0.9% 500 ML IV ONE (01:06)
[2023-08-09] MEDS ORDERED: VANCOMYCIN 1 GM VIAL ONE (01:07)
[2023-08-09] MEDS ORDERED: VANCOMYCIN 500 MG VIAL ONE (01:08)
[2023-08-09 05:27] VITALS: BP 148/76; O2SAT 97
== END 2023-08-09 05:21 | disposition home or self-care (01) ==
LOC: ED 21:04
DX: L03.115 Cellulitis of right lower limb (principal); Z79.899 Other long term (current) drug therapy
CPT/HCPCS: 36415; 80053; 83605; 84145; 85025; 96365; 96375; 99284

== ENCOUNTER 2023-11-19 18:50 | Outpatient (CLI) | payer MEDICAID | END 2023-11-19 18:51 | disposition critical access hospital (66) | LOC: EMS 18:50 | DX: M79.661 Pain in right lower leg (principal); W17.81XA Fall down embankment (hill), initial encounter; X31.XXXA Exposure to excessive natural cold, initial encounter; Y93.01 Activity, walking, marching and hiking; Y92.821 Forest as the place of occurrence of the external cause | CPT/HCPCS: A0425; A0427 ==

== ENCOUNTER 2023-11-19 19:06 | Emergency (ER) | payer MEDICAID, OTHER ==
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
[2023-11-19 20:19] LABS: BASOPHILS % (AUTO) 0.1 %; HCT - HEMATOCRIT 46.6 % (37.0-47.0); HGB - HEMOGLOBIN 15.2 g/dL (12.0-16.0); LYMPHOCYTES # (AUTO) 1.3 10^3/uL (1.5-3.5); MEAN CORPUSCULAR HEMOGLOBIN 33.5 pg (27.0-31.0); MEAN CORPUSCULAR HGB CONC 32.6 g/dL (32.0-36.0); MEAN CORPUSCULAR VOLUME 102.6 fL (81.0-99.0); MEAN PLATELET VOLUME 10.7 fL (7.9-10.8); MONOCYTES # (AUTO) 0.6 10^3/uL (0.0-1.0); MONOCYTES % (AUTO) 6.2 %; NEUTROPHILS # (AUTO) 7.9 10^3/uL (1.5-6.6); NEUTROPHILS % (AUTO) 80.3 %; PLT - PLATELET COUNT 218 10^3/uL (130-450); RED BLOOD COUNT 4.54 10^6/uL (4.20-5.40); RED CELL DISTRIBUTION WIDTH 13.1 % (12.0-15.0); WHITE BLOOD COUNT 9.8 x10^3/uL (4.8-10.8)
[2023-11-19 20:26] LABS: MAGNESIUM 1.6 mg/dL (1.7-2.3)
[2023-11-19 20:32] LABS: ALBUMIN 3.6 g/dL (3.2-5.5); ALBUMIN/GLOBULIN RATIO 1.4 (1.0-2.2); BILIRUBIN,TOTAL 1.3 mg/dL (0.2-1.0); CALCIUM 10.4 mg/dL (8.5-10.3); CREATININE 1.1 mg/dL (0.6-1.3); TOTAL PROTEIN 6.1 g/dL (6.4-8.9)
[2023-11-19] MEDS: SODIUM CHLORIDE 0.9% 1,000 ML IV ONE ×2 (20:52→21:34)
[2023-11-19 22:05] LABS: BILIRUBIN,URINE MODERATE (NEGATIVE); GLUCOSE, URINE (UA) NEGATIVE (NEGATIVE); KETONES,URINE (UA) 15 mg/dL (NEGATIVE); LEUKOCYTE ESTERASE, URINE NEGATIVE (NEGATIVE); NITRITE,URINE NEGATIVE (NEGATIVE); OCCULT BLOOD,URINE NEGATIVE (NEGATIVE); PROTEIN,URINE NEGATIVE (NEGATIVE); UROBILINOGEN,URINE 1 (NORMAL) E.U./dL (NORMAL)
[2023-11-19 22:07] LABS: CLARITY,URINE CLEAR (CLEAR)
[2023-11-19 22:15] LABS: COCAINE SCREEN URINE NEGATIVE (NEGATIVE); METHAMPHETAMINES SCREEN, URINE POSITIVE (NEGATIVE); THC CANNABINOID SCREEN, URINE POSITIVE (NEGATIVE)
[2023-11-19 22:16] LABS: AMPHETAMINE SCREEN,URINE POSITIVE (NEGATIVE); BARBITURATE SCREEN,UR NEGATIVE (NEGATIVE); BENZODIAZEPINES SCREEN, URINE NEGATIVE (NEGATIVE); BUPRENORPHINE SCREEN, URINE NEGATIVE (NEGATIVE); METHADONE SCREEN, URINE NEGATIVE (NEGATIVE); OPIATE SCREEN, URINE NEGATIVE (NEGATIVE); OXYCODONE SCREEN, URINE NEGATIVE (NEGATIVE); TRICYCLIC ANTIDEPRESSANT,URINE NEGATIVE (NEGATIVE)
--- NOTE | 2023-11-19 23:55 | CT Report ---
PROCEDURE: Head WO INDICATIONS: found down TECHNIQUE: Noncontrast 4.5 mm thick angled axial sections acquired from the foramen magnum to the vertex. For r adiation dose reduction, the following was used: automated exposure control, adjustment of mA and/or kV according to patient size. COMPARISON: None. FINDINGS: Image quality: Excellent. CSF spaces: Basal cisterns are patent. No extra-axial fluid collections. Ventricles are normal in size and shape. Brain: No midline shift. No intracranial masses or hemorrhage. Atkins-white matter interface is norm al. Skull and face: Calvarium and visualized facial bones are intact, without suspicious lesions. Sinuses: Paranasal sinus because of thickening. Mastoids are clear. IMPRESSION: No acute intracranial pathology. Reviewed by: Rodger Harmon MD on 11/19/2023 11:54 PM PDT Approved by: Rodger Harmon MD on 11/19/2023 11:54 PM PDT Station ID: [id number]
--- NOTE | 2023-11-20 00:01 | ED Physician Documentation ---
ED Addendum - Addendum Addendum: 11/20/23 00:00 Patient endorsed to me by IMMIGRATION CASE MANAGER Krystian awaiting repeat CK, which has improved from 805 to 628 s/p 3L IVF. Head ct unremarkable. patient is well appearing. Plan to continue to monitor, road test. 11/20/23 00:[address] test, taking 2-3 steps before stumbling. states she's been malnourished and unable to care for self. plan to continue to monitor, provide with food and water and reevaluate. 11/20/23 07:00 No acute event over night. Will endorse to incoming daytime ED MD at 7am shift change for TWAN ramos in am.
[2023-11-20 17:27] VITALS: O2SAT 99
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
[2023-11-20 19:16] VITALS: BP 100/67
== END 2023-11-20 19:14 | disposition home or self-care (01) ==
LOC: EDUNIT# → ED 19:06
DX: R53.1 Weakness (principal); E46 Unspecified protein-calorie malnutrition; Z68.26 Body mass index [BMI] 26.0-26.9, adult; E87.0 Hyperosmolality and hypernatremia; F43.21 Adjustment disorder with depressed mood; R82.5 Elevated urine levels of drugs, medicaments and biological substances; Z59.02 Unsheltered homelessness; Z74.1 Need for assistance with personal care; Z87.891 Personal history of nicotine dependence
CPT/HCPCS: 36415; 80053; 80306; 81001; 81003; 82550; 83690; 83735; 85025; 87086; 93005; 96360; 96361; 99285